=== PATIENT | female | born 1955 | race Caucasian/White ===

== ENCOUNTER → 2025-01-30 08:38 | Outpatient (BNVA) | payer MEDICARE, SELFPAY | PROVIDERS: Family Provider Family Medicine; PCP Family Medicine; Visit Provider Family Medicine | DX: D48.5 Neoplasm of uncertain behavior of skin (principal) | CPT/HCPCS: 88305 ==

== ENCOUNTER → 2025-03-03 13:46 | Outpatient (BNVA) | payer MEDICARE, SELFPAY | PROVIDERS: Family Provider Family Medicine; PCP Family Medicine; Visit Provider Dermatology | DX: D36.14 Benign neoplasm of peripheral nerves and autonomic nervous system of thorax (principal); L82.1 Other seborrheic keratosis; L57.8 Other skin changes due to chronic exposure to nonionizing radiation; C44.619 Basal cell carcinoma of skin of left upper limb, including shoulder | CPT/HCPCS: 11603; 12032; 99203 ==

== ENCOUNTER 2025-03-10 10:55 | Outpatient (CLI) | payer MEDICARE, SELFPAY ==
--- NOTE | 2025-03-10 11:07 | XRR_ITS ---
PROCEDURE INFORMATION: Exam: XR Cervical Spine Exam date and time: 03/10/2025 11:13 AM Age: 69 years old Clinical indication: Neck pain; Head pain for 2/3 months, no known trauma; Additional info: L sided facial pain/trigeminal neuralgia TECHNIQUE: Imaging protocol: Radiologic exam of the cervical spine. Views: 2 or 3 views. COMPARISON: No relevant prior studies available. FINDINGS: Bones/joints: Normal. No acute fracture. Normal alignment. Soft tissues: Unremarkable. XR/XR cervical spine 3V* [id number] IMPRESSION: No acute findings.
== END 2025-03-10 10:56 | disposition home or self-care (01) ==
PROVIDERS: Family Provider Family Medicine; PCP Family Medicine; Visit Provider Family Medicine
DX: M54.2 Cervicalgia (principal)
CPT/HCPCS: 72040

== ENCOUNTER → 2025-06-02 11:09 | Outpatient (BNVA) | payer MEDICARE, SELFPAY | PROVIDERS: Family Provider Family Medicine; PCP Family Medicine; Visit Provider Dermatology | DX: D36.14 Benign neoplasm of peripheral nerves and autonomic nervous system of thorax (principal); D36.13 Benign neoplasm of peripheral nerves and autonomic nervous system of lower limb, including hip; L82.1 Other seborrheic keratosis; L57.8 Other skin changes due to chronic exposure to nonionizing radiation; D69.2 Other nonthrombocytopenic purpura; D22.5 Melanocytic nevi of trunk; D22.4 Melanocytic nevi of scalp and neck; Z08 Encounter for follow-up examination after completed treatment for malignant neoplasm; Z85.828 Personal history of other malignant neoplasm of skin | CPT/HCPCS: 99213 ==

== ENCOUNTER → 2025-08-04 13:41 | Outpatient (BNVA) | payer MEDICARE, SELFPAY | PROVIDERS: Family Provider Family Medicine; PCP Family Medicine; Visit Provider Emergency Medicine | DX: M84.48XA Pathological fracture, other site, initial encounter for fracture (principal); X58.XXXA Exposure to other specified factors, initial encounter; J43.9 Emphysema, unspecified; J98.4 Other disorders of lung; J98.11 Atelectasis | CPT/HCPCS: 71046 ==